=== PATIENT | male | born 1940 | race Caucasian/White ===

== ENCOUNTER 2017-11-25 14:34 | Inpatient (IN) ==
--- NOTE | 2017-11-25 07:19 | Discharge Summary ---
<Rand New E - Last Filed: 11/25/17 09:59> Orders not resulted at time of discharge: Pending orders 11/25/17 00:00 XR shoulder complete LT [XR] Routine 11/25/17 01:00 Hemoglobin and Hematocrit [HEME] Routine Date of Encounter: 11/25/17 - Discharge Diagnosis (1) Arthritis of left shoulder region Priority: Primary Status: Chronic (2) Status post total replacement of left shoulder Priority: Primary Status: Acute (3) Pain in left shoulder Priority: Primary Status: Chronic Qualifiers: Chronicity: unspecified Qualified Code(s): M25.512 - Pain in left shoulder (4) GERD (gastroesophageal reflux disease) Priority: Secondary Status: Chronic Qualifiers: Esophagitis presence: esophagitis presence not specified Qualified Code(s) : K21.9 - Gastro-esophageal reflux disease without esophagitis (5) Obesity Priority: Secondary Status: Chronic Qualifiers: Obesity type: unspecified obesity type Obesity classification: unspecified obesity classification Serious obesity comorbidity presence: unspecified whether serious comorbidity present Qualified Code(s): E66.9 - Obesity, unspecified (6) ALEXANDREA on CPAP Priority: Secondary Status: Chronic (7) History of deep vein thrombosis (DVT) of lower extremity Priority: Secondary Status: Chronic - Hospital Course Hospital course: Mr. Verma is a 77 year old male - Time Spent with Patient Total time spent providing and/or coordinating discharge services: - Discharge Medications Prescriptions: Aspirin Enteric Coated [Aspirin EC] 325 mg PO BID 10 Days #20 tablet. OxyCOMARCI Immed Rel [Roxicodone 5 MG] 5 mg PO Q6HR PRN 7 Days #28 tablet PRN Reason: Severe Pain Home Medications: Aspirin [Lo-Dose Aspirin EC] 81 mg PO DAILY 11/20/16 [History] FLUoxetine HCl [Sarafem] 20 mg PO DAILY 11/20/16 [History] Glucosamine Sulfate Dipot Chlr [Glucosamine] 2,000 mg PO DAILY 11/20/16 [History ] LORazepam [Ativan] 0.25 - 0.5 mg PO DAILY PRN 11/20/16 [History] Meloxicam 15 mg PO DAILY 11/20/16 [History] Multivit-Min/FA/Lycopen/Lutein [Centrum Silver Tablet] 1 each PO DAILY 11/20/16 [History] Sennosides/Docusate Sodium [Senna Plus] 1 each PO DAILY 11/20/16 [History] Tamsulosin [Flomax] 0.4 mg PO BID PRN 11/20/16 [History] Venlafaxine XR (24 HR) [Effexor XR] 75 mg PO DAILY #30 cap.er.24h 09/02/17 [Rx] Vitamin B Complex [B Complex] 1 each PO DAILY 09/02/17 [History] Aspirin Enteric Coated [Aspirin EC] 325 mg PO BID 10 Days #20 tablet.dr [Rx] OxyCODONE Immed Rel [Roxicodone 5 MG] 5 mg PO Q6HR PRN 7 Days #28 tablet [Rx] Pantoprazole Sodium [Protonix] 20 mg PO DAILY 11/25/17 [History] Allergies/Adverse Reactions: 3 Allergy/AdvReac Type Severity Reaction Status Date / Time No Known Allergies Allergy Verified 10/03/15 13:08 Primary care physician: Seamus Rosenthal MD - Patient Status Disposition: Home, Self-Care Condition: Good - Discharge Instructions Follow Up With: Seamus Rosenthal MD [Primary Care Provider] - <Prashant Cuadra - Last Filed: 11/26/17 06:28> Orders not resulted at time of discharge: Pending orders 11/25/17 00:00 XR shoulder complete LT [XR] Routine 11/25/17 01:00 Hemoglobin and Hematocrit [HEME] Routine 11/25/17 15:01 US anesthesia pain block [US] Stat Date of Encounter: 11/26/17 Time of Encounter: 06:28 - Discharge Diagnosis (1) Obesity (BMI 30.0-34.9) Priority: Secondary Status: Chronic (2) Arthritis of left shoulder region Priority: Primary Status: Chronic (3) Status post total replacement of left shoulder Priority: Primary Status: Acute (4) GERD (gastroesophageal reflux disease) Priority: Secondary Status: Chronic Qualifiers: Esophagitis presence: esophagitis presence not specified Qualified Code(s) : K21.9 - Gastro-esophageal reflux disease without esophagitis (5) ALEXANDREA on CPAP Priority: Secondary Status: Chronic (6) History of deep vein thrombosis (DVT) of lower extremity Priority: Secondary Status: Chronic (7) Prostate cancer Priority: Secondary Status: Chronic - Hospital Course Hospital course: Mr. Verma is a 77 year old male Status post left total shoulder replacement The patient had an uneventful postoperative course. They received antibiotics and physical therapy and were discharged in stable condition. There will follow -up in the office in 2 weeks. - Time Spent with Patient Total time spent providing and/or coordinating discharge services: Primary care physician: Seamus Rosenthal MD - Patient Status Functional capacity at discharge: independent ambulation Overall status at discharge: patient is progressing back to baseline
--- NOTE | 2017-11-25 14:50 | Anesthesia Evaluation PreOp ---
Date of Encounter: 11/25/17 Time of Encounter: 14:48 - Past History Planned Operation: left TSR Cardiac History: Denies any Significant Hx Pulmonary History: Former smoker (quit 1997), ALEXANDREA Dx (CPAP 12) PRIMARY CARE COORDINATOR History: Denies Any Significant HX, Other (polio as child) Other Medical History: Renal (prostate CA, treated with XRT) Anesthesia History: Past Anesthesia (TKA with blood clot, hernia, shoulder replacement x 2, toe, Veronica, orchiectomy for torsion) Alcohol Use: occasionally Drug use: none Medications and Allergies Aspirin [Lo-Dose Aspirin EC] 81 mg PO DAILY 11/20/16 [History] FLUoxetine HCl [Sarafem] 20 mg PO DAILY 11/20/16 [History] Glucosamine Sulfate Dipot Chlr [Glucosamine] 2,000 mg PO DAILY 11/20/16 [History ] LORazepam [Ativan] 0.25 - 0.5 mg PO DAILY PRN 11/20/16 [History] Meloxicam 15 mg PO DAILY 11/20/16 [History] Multivit-Min/FA/Lycopen/Lutein [Centrum Silver Tablet] 1 each PO DAILY 11/20/16 [History] Sennosides/Docusate Sodium [Senna Plus] 1 each PO DAILY 11/20/16 [History] Tamsulosin [Flomax] 0.4 mg PO BID PRN 11/20/16 [History] Venlafaxine XR (24 HR) [Effexor XR] 75 mg PO DAILY #30 cap.er.24h 09/02/17 [Rx] Vitamin B Complex [B Complex] 1 each PO DAILY 09/02/17 [History] Aspirin Enteric Coated [Aspirin EC] 325 mg PO BID 10 Days #20 tablet.dr [Rx] OxyCODONE Immed Rel [Roxicodone 5 MG] 5 mg PO Q6HR PRN 7 Days #28 tablet [Rx] Pantoprazole Sodium [Protonix] 20 mg PO DAILY 11/25/17 [History] 3 Allergy/AdvReac Type Severity Reaction Status Date / Time No Known Allergies Allergy Verified 10/03/15 13:08 - Meds/Allergy Pre-op Review Medications Reviewed: Yes Allergies Reviewed: Yes Beta Blockers on Current Med List: No Anesthesia Exam - HEENT Pupil (Motor): EOMI Mallampati: II Teeth: Edentulous Oral Opening: Greater than 3 - PRIMARY CARE COORDINATOR LOC: Oriented PRIMARY CARE COORDINATOR Motor: Normal RUE, Normal LUE, Normal RLE, Normal LLE, Normal Face PRIMARY CARE COORDINATOR Sensory: Normal: RUE, LUE, RLE, LLE, Face - Cardiac Rhythm: Regular Murmur: None - Pulmonary Breath Sounds: bilateral Clear Respiratory Effort: Symmetrical Anesthesia Assess/Plan ASA Score: 2 Modified [place] Scale for Level of Consciousness: Cooperative, oriented, and tranquil Anesthetic Plan: General Monitoring Plan: Standard Monitors Recovery Plan: PACU (agrees to block and GA)
[2017-11-25] MEDS ORDERED: CeFAZolin Syr 2,000MG/20 ML 2,000 MG/20 ML SYRINGE IVPB ONE (14:57)
[2017-11-25] MEDS ORDERED: Ringers Solution, Lactated 1,000 ML IVC SCH ×2 (15:00→20:19)
[2017-11-25] MEDS ORDERED: Ondansetron 4 MG/2 ML VIAL ONE ×2 (16:13→18:26)
[2017-11-25] MEDS ORDERED: *HR* FentaNYL (PF) 100 MCG/2 ML VIAL ONE ×2 (16:13→17:33)
[2017-11-25] MEDS ORDERED: Dexamethasone 4 MG/ML VIAL ONE ×2 (16:13→17:33)
[2017-11-25] MEDS ORDERED: *HR* Propofol 200 MG/20 ML VIAL IVP ONE ×2 (16:13→17:47)
[2017-11-25] MEDS ORDERED: *HR* Succinylcholine 200 MG/10 ML VIAL IVP ONE ×2 (16:13→18:26)
[2017-11-25] MEDS ORDERED: Lidocaine -MPF 2% 2 ML VIAL ONE ×2 (16:13→17:47)
--- NOTE | 2017-11-25 16:29 | History & Physical Report ---
Date of Encounter: 11/25/17 Time of Encounter: 16:28 24 Hour HP Update - Instructions Instructions: If the History and Physical is less than 30 days old and was completed prior to A.M. admission and or procedure and has NOT been updated on calendar day of procedure please complete this update prior to performing procedure. - Update Patient reports changes in Medical Condition: No Changes in examination, assessment, or condition: No Changes in Medication: No Preop tests/diagnostics Reviewed: Yes Surgery Remains Indicated: Yes Consent for Planned Operative Procedure(s) Verified: Yes - Pre-Operative Checklist Preoperative Checklist Indicated: No Prophylactic Antibiotic Ordered: Yes Is VTE Prophylaxis Indicated?: Yes
[2017-11-25] MEDS ORDERED: ROPIVACAINE HCL/PF 0.5% 30 ML VIAL ONE (17:30)
[2017-11-25] MEDS ORDERED: Bupivacaine/Clonidine Syringe 1 EACH SYRINGE ONE (17:30)
[2017-11-25] MEDS ORDERED: *HR* Enoxaparin 30 MG/0.3 ML SYRINGE SQ SCH (18:00)
--- NOTE | 2017-11-25 18:12 | Anesthesia Procedures ---
Date of Encounter: 11/25/17 Time of Encounter: 18:10 Procedures: Anesthesia - Nerve Block Procedure Date: 11/25/17 Time: 17:55 Allergies/Adv Reactions: NKDA Pre-op Diagnosis: left rotator cuff arthropothy Surgical Procedure: left total shoulder Checklist: Correct Patient Identifier, Correct procedure, History checked Correct side: Left Blood Thinner: No Monitor Applied: EKG, BP, Pulse Oximetry Supplemental Oxygen via Nasal Cannula (L/min): 2 Sedation: Versed (mg): 2 Sedation: Fentanyl (mcg): 100 Indication: Post Op Analgesia Pre-op Neuro Deficits: No Block Type: Supraclavicular, Other (superficial cervical plexus) Catheter placed: No Sterile Technique: Yes Ultrasound used: Yes Anatomy identified: Yes Visual spread of Local: Yes Neuro Stimulation: No Blood on Needle Aspiration: No Smooth Injection of Local: Yes Pain with Injection of Local: No Prep: Chlorhexadine Needle: 22 x 50 mm Stimuplex Local: 0.25% Bupivicaine w/Clonidine 20 mcg/cc ( 5cc 0.25% bupivicaine+ clonidine for SCP block), Ropivacaine (30cc 0.5% ropivacaine for supraclavicular block) Volume (cc): 35cc Number of Attempts: 1 Complications: None/effective block Vitals: 3 Vital Signs BP 136/68 Pulse 65 Resp 20 O2 Sat 97%
[2017-11-25] MEDS ORDERED: Ondansetron 4 MG/2 ML VIAL IVP ONE (18:28)
[2017-11-25] MEDS ORDERED: *HR* Labetalol 20 MG/4 ML SYRINGE IVP PRN (18:28)
[2017-11-25] MEDS ORDERED: *HR* OxyCODONE Immed Rel 5 MG TABLET PO PRN ×2 (18:28→20:19)
--- NOTE | 2017-11-25 18:54 | Orthopedic Operative Note ---
Date of procedure: 11/25/17 Pre-op diagnosis: Left shoulder cuff tear arthropathy Post-op diagnosis: same Procedure: Procedure: Total Shoulder Replacment Reverse, left Estimated blood loss: 100 cc Hardware: Metal and polyethylene replacement: Arthrex large glenoid baseplate, 2 4.5 screws. 1 6.5 screw, 42+4 glenosphere, 11 humeral stem, poly insert 6 Exam Under anesthesia: Full motion no instability Procedural Notes: tear supraspinatus tendon. Grade 4 arthritic changes humeral head glenoid socket. Operative procedure: The patient was brought to the operating room and placed on the operating room table. After general anesthesia was administered the operative shoulder was examined. Findings were noted. The patient was placed in the modified beachchair position. All pressure points were padded appropriately. And the head was stabilized in the neutral position. The operative extremity was prepped and draped in the sterile surgical fashion. The patient received IV antibiotics prior to skin incision. A standard deltopectoral approach was made to the operative shoulder. Incision was made to the skin and subcutaneous tissue,hemo stasis was obtained with Bovie cautery. Using careful blunt dissection the cephalic vein was identified and mobilized medially. The deltopectoral interval was developed and the clavipectoral fascia was incised. The subscap was released off the lesser tuberosity and tagged with #2 FiberWire suture subscap was irreparable. The humerus was dislocated patient noted to have irreparable tear supraspinatus tendon, and the humeral cut was made along the anatomic neck. Patient noted to have grade 4 arthritic changes humeral head Anterior and posterior Bankart retractors were placed to expose the glenoid. Patient noted to have grade 4 arthritic changes glenoid socket. The glenoid guide was seated and the centering hole was made. It was reamed with the appropriate reamer. The large baseplate was seated and secured with (2) 4.5 screws and one 6.5 screw. The baseplate was irrigated and dried and the 42+4 Glenosphere was seated and secured with the Stewart taper. The Stewart taper was tested and found to be secure the humerus was redislocated and prepared with the diaphyseal reamers, followed by a broaching process up to the appropriate size 11 in the patient's anatomic version. The metaphyseal reamer was then utilized. Trial reduction found the shoulder to be relocatable. Trial components were removed and 11 stem was impacted in place in the patient's anatomic version. Trial reduction found the shoulder to be relocatable and stable with the appropriate 6 Susannah Trial component was removed and the real implant was seated and secured the shoulder was reduced. The shoulder had excellent motion and excellent stability and no evidence of dislocation. The deep tissue was irrigated with pulse irrigation. The PA close the shoulder. The deltopectoral interval was closed with a running #1 PDS suture, subcutaneous tissue was irrigated and closed with 0 PDS suture, the skin was closed with Dermabond. The patient was placed in a sterile dressing, abduction brace and extubated. The patient was then transferred to the recovery room in stable condition. Anesthesia: GETJordon Surgeon: Parshant Cuadra Was there an chef assistant present: Yes Data Warehouse Manager: Fernanda Germain Estimated blood loss (cc): 100 Condition: stable Disposition: PACU
[2017-11-25] MEDS ORDERED: EPHEDrine 50 MG/ML VIAL ONE (18:55)
[2017-11-25] MEDS ORDERED: MOM Conc 10 ML UD.LIQ PO PRN (20:19)
[2017-11-25] MEDS ORDERED: Naloxone 0.4 MG/ML INJ IVP PRN (20:19)
[2017-11-25] MEDS ORDERED: *HR* OxyCODONE/APAP 5/325 TABLET PO PRN (20:19)
[2017-11-25] MEDS ORDERED: Temazepam 15 MG CAPSULE PO PRN (20:19)
[2017-11-25] MEDS ORDERED: Ondansetron 4 MG/2 ML VIAL IVP PRN (20:19)
[2017-11-25] MEDS ORDERED: Sennosides 8.6 MG TABLET PO PRN (20:19)
[2017-11-25] MEDS ORDERED: *HR* LORazepam 0.5 MG TABLET PO PRN (20:19)
[2017-11-25] MEDS ORDERED: traMADol 50 MG TABLET PO PRN (20:19)
--- NOTE | 2017-11-25 20:46 | Anesthesia Evaluation Post Op ---
Date of Encounter: 11/25/17 Time of Encounter: 20:44 - Vital Signs Vital Signs: Vital Signs/O2 Sat, Most Current Temp Pulse Resp BP Pulse Ox 98.1 F 96 18 122/69 96 11/25/17 19:48 11/25/17 19:48 11/25/17 19:48 11/25/17 19:48 11/25/17 19:48 - Lungs Lungs: Clear Ascult./Percussion - Airway Airway: Non-obstructed - Cardiovascular Regular Rate - Mental Status Mental Status: Alert & Oriented, Answers Appropriately - Pain Pain Scale: 0 Pain Scale used: Numeric (1 - 10) - Nausea Vomiting Nausea Vomiting: Not Present - Hydration Hydration: Ice chips - Discharge PostOp Status: Transfer Patient to floor
[2017-11-26] MEDS: ceFAZolin 2,000 MG in 0.9 % Sodium Chloride 100 ML IVPB SCH ×2 (00:21→08:20)
[2017-11-26 01:22] LABS: Hematocrit 35.9 % (37.5-50.1); Hemoglobin 11.7 g/dL (12.9-16.9)
[2017-11-26 05:31] LABS: Hematocrit 34.1 % (37.5-50.1); Hemoglobin 11.1 g/dL (12.9-16.9)
[2017-11-26] MEDS ORDERED: *HR* Enoxaparin 30 MG/0.3 ML SYRINGE SQ SCH (06:00)
--- NOTE | 2017-11-26 06:29 | Orthopedics Progress Note ---
Date of Encounter: 11/26/17 Time of Encounter: 06:29 - Assessment and Plan (1) Obesity (BMI 30.0-34.9) Current Visit: Yes Status: Chronic (2) Arthritis of left shoulder region Current Visit: No Status: Chronic (3) Status post total replacement of left shoulder Current Visit: No Status: Acute (4) GERD (gastroesophageal reflux disease) Current Visit: No Status: Chronic Qualifiers: Esophagitis presence: esophagitis presence not specified Qualified Code(s) : K21.9 - Gastro-esophageal reflux disease without esophagitis (5) ALEXANDREA on CPAP Current Visit: No Status: Chronic (6) History of deep vein thrombosis (DVT) of lower extremity Current Visit: No Status: Chronic (7) Prostate cancer Current Visit: No Status: Chronic Subjective Interval history: Patient was seen this morning doing well without complaints. Afebrile vital signs stable. Operative extremity: Neurovascularly intact Dressing clean dry and intact Calves nontender Assessment and plan: Continue with postoperative care Discharged today Objective Vital signs: Vital Signs Temp Pulse Resp BP Pulse Ox 11/26/17 05:33 98.8 F 87 16 132/69 92 11/26/17 00:07 98.0 F 109 16 135/75 92 11/25/17 23:45 98.0 F 100 18 130/70 96 11/25/17 22:45 97.6 F 96 18 118/60 95 11/25/17 21:45 97.5 F L 91 18 114/50 94 11/25/17 21:20 100 11/25/17 21:15 97.3 F L 95 19 121/67 94 11/25/17 19:48 98.1 F 96 18 122/69 96 11/25/17 19:38 98.1 F 97 18 132/66 94 11/25/17 19:28 98.1 F 97 16 117/73 93 11/25/17 19:18 97.8 F 96 16 132/69 94 11/25/17 19:08 97.5 F L 97 12 136/74 94 11/25/17 17:50 67 136/68 97 11/25/17 14:47 97.9 F 64 18 142/74 94 Intake and Output 11/25/17 11/25/17 11/26/17 15:59 23:59 07:59 Intake Total 20 / 20 240 / 240 Output Total 100 / 100 300 / 300 Balance -80 / -80 -60 / -60 Intake: IV Fluids 20 / 20 Ancef Syringe 2,000 MG/20 ML 2, 20 / 20 000 mg In 20 ml @ 200 mls/hr IVPB PREOP ONE Rx#:[id number] Oral 240 / 240 Output: Urine 300 / 300 Estimated Blood Loss 100 / 100 Other: Weight 108.862 kg - Labs CBC & BMP: 11/26/17 05:12 Labs: Abnormal lab results Hgb 11.1 g/dL (12.9-16.9) L 11/26/17 05:12 Hct 34.1 % (37.5-50.1) L 11/26/17 05:12 - VTE Documentation of Mechanical Device: Venous foot pump, device Consult Discharge Plan - Plan Referrals: Seamus Rosenthal MD [Primary Care Provider] - Prescriptions: Aspirin Enteric Coated [Aspirin EC] 325 mg PO BID 10 Days #20 tablet. OxyCODONLana Immed Rel [Roxicodone 5 MG] 5 mg PO Q6HR PRN 7 Days #28 tablet PRN Reason: Severe Pain
[2017-11-26 07:11] VITALS: BP 138/72
[2017-11-26] MEDS: Multivit/Ca/Min/Fe/FA 1 TAB TABLET PO SCH ×2 (08:20→08:24)
[2017-11-26] MEDS: FLUoxetine 20 MG CAPSULE PO SCH ×2 (08:20→08:24)
[2017-11-26] MEDS: Aspirin Enteric Coated 81 MG Tablet PO SCH ×2 (08:20→08:24)
[2017-11-26] MEDS: Vitamin B Complex/Vit C/Vit E 1 EACH TABLET PO SCH ×2 (08:20→08:24)
[2017-11-26] MEDS ORDERED: Celecoxib 200 MG CAPSULE PO SCH (09:00)
== END 2017-11-26 11:08 | disposition home or self-care (01) | DRG 483 ==
LOC: SAMDAY 14:34 → 3NENU 14:35 → SAMDAY 11-26 11:07
PROVIDERS: ADMIT Orthopaedic Surgery; ATTEND Orthopaedic Surgery